=== PATIENT | male | born 1930 | race Caucasian/White ===

== ENCOUNTER 2016-12-27 19:36 | Inpatient (IN) ==
[2016-12-27] MEDS ORDERED: ASPIRIN PO STA (21:12)
[2016-12-27] MEDS ORDERED: MOTRIN PO ONE (21:49)
[2016-12-27 21:55] LABS: INR 1.92
[2016-12-27 21:56] LABS: PTT 51.6 Seconds (22.0-36.0)
[2016-12-27 22:02] LABS: ALBUMIN 3.5 g/dL (3.5-5.0); CALCIUM 8.8 mg/dL (8.8-10.2); MAGNESIUM 2.1 mg/dL (1.5-2.7); POTASSIUM 4.6 mmol/L (3.5-5.1); TOTAL BILIRUBIN 0.5 mg/dL (0.20-1.00); TOTAL PROTEIN 5.8 g/dL (6.3-8.3)
[2016-12-27] MEDS ORDERED: DECADRON IV ONE (22:08)
[2016-12-27] MEDS ORDERED: DUONEB (A & A) INH ONE (22:08)
[2016-12-27 22:09] LABS: BASO% 0.4 % (0.0-0.8); EOS# 0.03 X1000 (0.0-0.7); HEMATOCRIT 26.1 % (42.0-52.0); HEMOGLOBIN 8.3 g/dL (14.0-18.0); IMM GRAN% 0.1 % (0.0-0.5); LYMPH# 147.89 X1000 (1.2-3.4); LYMPH% 96.8 % (20.5-51.1); MANUAL DIFF NEEDED? YES; MCH 35.3 PG (27-31); MCHC 31.8 g/dL (33-37); MCV 111.1 FL (81-99); MONO# 2.87 X1000 (0.11-0.59); MONO% 1.9 % (1.7-9.3); MPV 12.7 FL (7.4-10.4); NEUT% 0.8 % (42.2-75.2); PLT 98 X1000 (130-400); RBC 2.35 XMIL (4.7-6.1)
[2016-12-27] MEDS ORDERED: ROCEPHIN 1 GM/NS 1 GM/50 ML IVPB IV ONE (22:10)
[2016-12-27] MEDS ORDERED: VANCOMYCIN 1 GM/NS 1 GM/250 ML IVPB IV ONE (22:11)
--- NOTE | 2016-12-27 22:12 | PROVIDER DOCUMENTATION ---
HPI-General Adult - General Chief Complaint: Shortness of Breath Stated Complaint: cough,fever,ca Time Seen by Provider: 12/27/16 21:21 Source: patient, family Allergies/Adverse Reactions: Patient Allergies Allergy/AdvReac Type Severity Reaction Status Date / Time No Known Allergies Allergy Verified 12/27/16 20:26 Home Medications: Home Medication List Medication Instructions Recorded Confirmed Last Taken Type Diltiazem HCl [Cardizem Cd] 360 mg PO DAILY 12/27/16 12/27/16 12/27/16 07:00 History Finasteride 5 mg PO DAILY 12/27/16 12/27/16 12/27/16 07:00 History Folic Acid 1 mg PO DAILY 12/27/16 12/27/16 12/27/16 07:00 History Furosemide [Lasix] 20 mg PO DAILY 12/27/16 12/27/16 12/27/16 07:00 History Hydrocodone Bit/Acetaminophen 1 each PO Q6-8H PRN PRN 12/27/16 12/27/16 14:00 History [Hydrocodon-Acetaminophen 5-325] Ibrutinib [Imbruvica] 280 mg PO DAILY 12/27/16 12/27/16 12/27/16 07:00 History Lisinopril [Zestril] 10 mg PO DAILY 12/27/16 12/27/16 12/27/16 07:00 History Methotrexate 10 mg PO DIRECTED 12/27/16 12/27/16 12/25/16 07:00 History Tamsulosin HCl 0.4 mg PO DAILY 12/27/16 12/27/16 12/27/16 07:00 History Venlafaxine HCl [Venlafaxine HCl 75 mg PO DAILY 12/27/16 12/27/16 12/27/16 07: 00 History ER] Warfarin Sodium 7.5 mg PO QHS 12/27/16 12/27/16 12/26/16 19:00 History - History of Present Illness -Gen Adult Nature of Presenting Problems: Pt is 86 y/o M c chief complaint of SOB that is worsening over the past week. Pt is under tx for Leukemia by Dr. Trujillo (Heme/Onc). He is currently undergoing chemotherapy. He was seen in Dr. Trujillo's office yesterday by his ADDRESS CHANGE CLERK for a routine check-up and stated that he had a cough. She started him on Levaquin. Today, he has been extremely SOB and febrile c tmax 101F. He is accompanied by his daughter who is a nurse. On arrival, pt has a low grade fever and is tachycardic and SOB. Review of Systems - Adult - REVIEW OF SYSTEMS - ADULT Constitutional: reports: no symptoms reported. denies: chills, fatique Eyes: reports: no symptoms reported. denies: blurred vision, double vision Ears, Nose, Mouth & Throat: reports: no symptoms reported. denies: ear pain, nose pain Cardiovascular: reports: no symptoms reported. denies: chest pain, orthopnea Respiratory: reports: cough, pleurisy, shortness of breath, wheezing Gastrointestinal: reports: no symptoms reported. denies: abdominal pain, nausea Genitourinary: reports: no symptoms reported. denies: dysuria, hematuria Musculoskeletal: reports: no symptoms reported. denies: bone pain, joint pain, joint swelling Integumentary: reports: no symptoms reported. denies: itching, rash Neurological: reports: no symptoms reported. denies: numbness, paresthesia Psychiatric: reports: no symptoms reported. denies: anxiety, emotional problems Endocrine: reports: no symptoms reported. denies: cold intolerance, heat intolerance Hematologic/Lymphatic: reports: no symptoms reported. denies: blood clots, low blood count Allergic/Immunologic: reports: no symptoms reported. denies: allergic reactions , food allergy All Other Systems: Reviewed and Negative Past History - Adult - PAST MEDICAL HISTORY-ADULT Review of Records: reports: Old Records Reviewed, Nursing Assessment Review, Medications Reviewed, Social history reviewed & non-contributory. Major Childhood Illnesses: reports: denies history Cardiovascular: reports: A-Fib, HTN Respiratory: reports: denies history Gastrointestinal: reports: denies history Obstetrical/Gynecological: reports: denies history Genitourinary: reports: denies history Musculoskeletal: reports: denies history Neurological: reports: denies history Endocrine/Immune: reports: Leukemia Other Conditions: reports: denies history - IMMUNIZATION STATUS Childhood Immunizations: See Nurse Assessment Flu Vaccine: See Nurse Assessment - FAMILY HISTORY Family History: reviewed, not pertinent - SOCIAL HISTORY Smoking: denies Substance Use: none/never Alcohol Use Frequency: never Living Situation: family Physical Exam-General - PHYSICAL EXAM-ADULT Initial Vital Signs Reviewed: Yes - CONSTITUTIONAL General Appearance: alert, mild distress, lethargic - EYES Eyes: PERRL/EOMI, pink conjunctivae - HEAD, EARS, NOSE, MOUTH & THROAT HENMT: normocephalic/atraumatic, moist mucous membranes, normal ENT inspection - NECK Neck: normal inspection - RESPIRATORY Respiratory: rhonchi, wheezing - CARDIOVASCULAR Cardiovascular: normal peripheral pulses, regular rate, rhythm - GASTROINTESTINAL (ABDOMEN) Abdominal Exam: normal bowel sounds, non tender, soft - LYMPHATIC Lymphatic: no adenopathy - MUSCULOSKELETAL Back Exam: normal inspection, no CVA tenderness, no vertebral tenderness Extremity: normal range of motion, non-tender, normal inspection - SKIN Integumentary: normal color, normal turgor, warm/dry - NEUROLOGIC Neurologic: grossly normal, no motor/sensory deficits - PSYCHIATRIC Psych/Mental Status: normal mood/affect, normal thought content, normal thought process, oriented x 3 Progress - PLAN OF CARE/RESULTS Progress/Plan/Lab Results: Vital Signs - 8 hr 12/27/16 20:12 Temperature 99.9 F H Pulse Rate 113 H Respiratory Rate 34 H Blood Pressure 154/73 O2 Sat by Pulse Oximetry 94 L Laboratory Results - last 24 hr 12/27/16 12/27/16 12/27/16 19:50 19:50 19:50 PT 21.0 H INR 1.92 PTT (Actin FS) 51.6 H Sodium 137 Potassium 4.6 Chloride 98 Carbon Dioxide 24 L Anion Gap 15 BUN 28 H Creatinine 1.2 Estimated GFR/1.73 m2 57 BUN/Creatinine Ratio 23 Glucose 109 H Calculated Osmolality 280 Calcium 8.8 Magnesium 2.1 Total Bilirubin 0.50 AST 17 ALT 12 Alkaline Phosphatase 77 Creatine Kinase 123 Troponin T < 0.010 Total Protein 5.8 L Albumin 3.5 Globulin 2.3 Albumin/Globulin Ratio 1.5 Plasma Lactate 12/27/16 21:22 PT INR PTT (Actin FS) Sodium Potassium Chloride Carbon Dioxide Anion Gap BUN Creatinine Estimated GFR/1.73 m2 BUN/Creatinine Ratio Glucose Calculated Osmolality Calcium Magnesium Total Bilirubin AST ALT Alkaline Phosphatase Creatine Kinase Troponin T Total Protein Albumin Globulin Albumin/Globulin Ratio Plasma Lactate 0.8 Orders Category Date Time Status Cardiac Monitoring DIRECTED Care 12/27/16 21:12 Active Oxygen Therapy- ED Nursing DIRECTED Care 12/27/16 21:12 Active Saline Loc NOW Care 12/27/16 21:12 Active CHEST-PORTABLE [RAD] Stat Exams 12/27/16 21:12 Taken CBC WITH ELECTRONIC DIFF [HEME] Stat Lab 12/27/16 19:50 Results CK PROFILE [SP CHEM] Stat Lab 12/27/16 19:50 Completed COMPREHENSIVE METABOLIC PANEL [CHEM] Stat Lab 12/27/16 19:50 Completed D-DIMER [CHEM] Stat Lab 12/27/16 19:50 Received INFLUENZA SCREEN A/B Stat Lab 12/27/16 21:40 Received LACTATE, PLASMA [CHEM] Stat Lab 12/27/16 21:22 Completed MAGNESIUM [CHEM] Stat Lab 12/27/16 19:50 Completed PRO B-NATRIURETIC PEPTIDE Stat Lab 12/27/16 19:50 Received PROTIME WITH INR [COAG] Stat Lab 12/27/16 19:50 Completed PTT [COAG] Stat Lab 12/27/16 19:50 Completed TROPONIN T Stat Lab 12/27/16 19:50 Completed Aspirin Med 12/27/16 21:12 Discontinued 325 mg PO STAT STA Ibuprofen [Motrin] Med 12/27/16 21:49 Discontinued 800 mg PO NOW ONE EKG [EKG] Stat Ther 12/27/16 20:47 Ordered Result Diagrams: 12/27/16 19:50 12/27/16 19:50 - XRAY 1 XRAY Study: Chest Impression: Abnormal (LLL infilatrate) - CONSULTS/PCP/HOSPITALIST Notification #1 *Consult/PCP/Hospitalist*: Dr. Charisse Stephen (call center support representative for Dr. Trujillo) Time Discussed: 22:25 Reason/Comments: recommend admit and will consult #2 Consult: Dr. Mendiola (Hospitalist) Time Discussed: 22:30 Reason/Comments: reviewed Departure - Departure Time of Disposition Decision: 22:24 DIAGNOSIS: Leukemia Qualifiers: Leukemia type: unspecified Leukemia Active/Remission status: relapsed Qualified Code(s): C95.92 - Leukemia, unspecified, in relapse Pneumonia Qualifiers: Pneumonia type: due to unspecified organism Laterality: left Lung location: lower lobe of lung Qualified Code(s): J18.1 - Lobar pneumonia, unspecified organism Disposition: ADMITTED INPATIENT 09 Certified Medical Emergency: Emergent Condition: Stable Attestation - Physician/ HELLEN Attestation Patient care was provided by Advanced Practice Provider:: Yes Advanced Practice Provider:: Gustabo Newton Advanced Practice Provider documentation review:: The Mid-level provider documentation, treatment plan and medical decision making was reviewed by the physician who agrees with all treatment and medical decision making by the MLP.
[2016-12-27 22:13] LABS: LYMPHS 95 % (21-51)
[2016-12-28] MEDS ORDERED: NS 1,000 ML IV ONE (00:06)
[2016-12-28 00:31] LABS: ALLEN TEST YES; BE -0.2 mmoll (-3.0-3.0); BLOOD TYPE ARTERIAL; DRAW SITE R RADIAL; METHB 1.9 % (0.0-1.5); MODALITY VENTIMASK; O2(CT) 10.8 mL/dL (15.0-23.0); PCO2(98.6) 35 mmHg (35-45); PO2(98.6) 84 mmHg (60-100); SAMPLE BLOOD; SAO2 99.7 % (95.0-100.0); pH(98.6) 7.44 (7.35-7.45)
[2016-12-28] MEDS ORDERED: ZOFRAN IV PRN (01:06)
[2016-12-28] MEDS: ZITHROMAX 500 MG/NS 500 MG/250 ML IVPB IV SCH (01:41)
[2016-12-28] MEDS: NS 1,000 ML IV SCH ×3 (01:59→16:49)
--- NOTE | 2016-12-28 04:53 | HISTORY AND PHYSICAL ---
CHIEF COMPLAINT: Shortness of breath, weakness. HISTORY OF PRESENT ILLNESS: An 86-year-old, white male with history of CLL, currently undergoing treatment. I think he has had a conversion in his CLL to an acute leukemoid episode, and he is currently getting treatment for it with Imbruvica. He comes in today with 24 hours of shortness of breath, cough. He just does not feel well. Chest x-ray shows some interstitial infiltrates and he was admitted for treatment. Workup again showed pneumonia, profound leukocytosis of 150,000. Per his daughter, who is a nurse, and he has been over 100, but I think he has had treatment for that. He has had white counts but not this high of a problem and he was admitted for the pneumonia with early sepsis. PAST MEDICAL HISTORY: 1. CLL. 2. He denies COPD but his chest x-rays have been read as pulmonary fibrosis and COPD previously, but he is not a smoker. 3. Hypertension. 4. Paroxysmal atrial fibrillation. 5. Depression. PAST SURGICAL HISTORY: He has had a cholecystectomy. He has had a hemorrhoidectomy. FAMILY HISTORY: Reviewed and noncontributory. SOCIAL HISTORY: No tobacco or ethanol. He is retired. ALLERGIES: No known drug allergies. MEDICATIONS: He currently takes Cardizem CD 360, finasteride 5 daily, folic acid 1 daily, Lasix 20 daily, Bryan p.r.n., Imbruvica 280 daily, Zestril 10 daily, methotrexate 10 daily, Flomax 0.4 daily, Effexor 75 daily, warfarin 7.5 daily. REVIEW OF SYSTEMS: All other systems reviewed and are negative. PHYSICAL EXAMINATION: VITAL SIGNS: Blood pressure 125/57, heart rate 105, respiratory 23, temperature 99.9 degrees, 95% on 2 L. GENERAL: Well-developed male, in no acute distress. HEAD: Normocephalic, atraumatic. EYES: Pupils equal, round, reactive to light. Extraocular movements were intact. EAR/NOSE/THROAT: Had moist mucous membranes. PULMONARY: Bilateral breath sounds. Clear to auscultation. GI: Soft, nontender, nondistended. Bowel sounds are positive. EXTREMITIES: No clubbing or cyanosis. LYMPHATIC: No peripheral edema. NEUROLOGICAL: Nonfocal. LABORATORY DATA: White count 152, hemoglobin 8 and hematocrit 26, platelets 98,000. INR is 1.9. D-dimer up. Creatinine 1.2. BNP 1428. Chest x-ray reported as interstitial infiltrates. PROBLEM LIST: This is an 86-year-old male with chronic lymphocytic leukemia with leukemoid conversion and pneumonia with likely early sepsis. 1. Pneumonia with sepsis. We will continue IV fluids, resuscitation and we will continue other treatments and follow clinically. 2. He has been placed on Rocephin and vancomycin. I am going to add azithromycin and follow closely. 3. Chronic lymphocytic leukemia. He obviously has had progression in his disease. We will continue treatment and follow. 4. Atrial fibrillation appears to be controlled. We will continue medications. Follow his INR on warfarin. 5. Benign prostatic hypertrophy. We will continue to monitor very closely. cc: Israel Mendiola MD
--- NOTE | 2016-12-28 05:51 | EKG Report ---
Test Performed on : 12/27/2016 8:49:54 PM Test Reason : SOB Blood Pressure : / mmHG Vent. Rate : 107 BPM Atrial Rate : 096 BPM P-R Int : 000 ms QRS Dur : 092 ms QT Int : 314 ms P-R-T Axes : 000 -32 074 degrees QTc Int : 419 ms Atrial fibrillation. with rapid ventricular response. Left axis deviation Incomplete right bundle branch block Cannot rule out Anterior infarct , age undetermined Abnormal ECG When compared with ECG of 06-NOV-2007 09:41, Vent. rate has increased BY 41 BPM Non-specific change in ST segment in Anterior leads Nonspecific T wave abnormality now evident in Anterior leads Unconfirmed Result
--- NOTE | 2016-12-28 07:40 | Diag Imaging Result Document ---
PROCEDURE NAME: ANGIOGRAM/PULMONARY ARTERIES - 12/27/2016 CT PULMONARY ANGIOGRAM WITH INTRAVENOUS CONTRAST: 12/27/2016. A CT dose reduction protocol was used. COMPARISON: None. FINDINGS: Axial CT images of the chest were obtained after administering intravenous contrast. Coronal MIP images were generated. There is extensive patient motion artifact. No pulmonary embolism. There is mild bilateral axillary adenopathy. There is also paratracheal adenopathy and superior mediastinal adenopathy, with the largest node at the right tracheoesophageal groove measuring about 2.5 cm maximally. There is cardiomegaly. There are small pleural effusions. There is significant infiltrate in the lingula and left lower lobe, with some patchy infiltrates throughout the right lung as well. There is probably bronchitis. There may also be mild interstitial pulmonary edema. The spleen is enlarged, and there are some gastric collateral suggesting portal hypertension. Further imaging recommended here. No acute bony lesions. IMPRESSION: 1. No definite pulmonary embolism. 2. Cardiomegaly. Pleural effusions. Possible pulmonary edema. 3. Bronchitis and infiltrates suggesting bronchopneumonia. 4. Mild adenopathy. 5. Abnormal liver and spleen. Probable portal hypertension. Recommend imaging of the abdomen and pelvis. [facility]
[2016-12-28] MEDS: EFFEXOR XR PO SCH (08:00)
[2016-12-28] MEDS: CARDIZEM CD PO SCH (08:00)
[2016-12-28] MEDS: FOLIC ACID PO SCH (08:00)
[2016-12-28] MEDS: PROSCAR PO SCH (08:00)
--- NOTE | 2016-12-28 08:42 | Diag Imaging Result Document ---
PROCEDURE NAME: CHEST-PORTABLE - 12/27/2016 SINGLE FRONTAL RADIOGRAPH OF THE CHEST: COMPARISON: 10/17/2016. FINDINGS: There is ill-defined infiltrate involving the lingula and, perhaps, the right middle lobe as well. There is stable mild scarring in the right middle lung zone. There is stable cardiomegaly. Central vasculature appears somewhat prominent suggesting pulmonary venous congestion. IMPRESSION: 1. Ill-defined lingular consolidation and possible mild right middle lobe consolidation. 2. Stable cardiomegaly. 3. Suggestion of at least mild pulmonary venous congestion.
[2016-12-28] MEDS: XOPENEX NEB INH SCH ×4 (09:42→19:35)
--- NOTE | 2016-12-28 09:42 | PROGRESS NOTE ---
DATE: 12/28/2016 HISTORY: This is an 86-year-old male with history of CLL, currently undergoing treatment. He first had CLL about 11 years ago. Received, I think, 11 infusions and felt like he had it whooped and then recently it has come back. He is followed by Dr. Trujillo. He had had a conversion of his CLL to an acute leukemoid episode. Currently getting treatment with Imbruvica. He came in this morning with shortness of breath and cough. Did not feel well. Chest x-ray showed some interstitial infiltrates. He was admitted for treatment. Workup showed pneumonia, profound leukocytosis 150,000 per daughter, who is a nurse. It has been over 100,000. I think he has had treatment for that. White count has not been this high of a problem. PAST MEDICAL HISTORY: 1. CLL, recent leukemoid episode on Imbruvica. 2. Denies COPD. Chest x-ray has some pulmonary fibrosis and some mild COPD previously, not a smoker. 3. Hypertension. 4. Paroxysmal atrial fibrillation. 5. Depression. PAST SURGICAL HISTORY: He has had a cholecystectomy. He has had a hemorrhoidectomy. SUBJECTIVE: This morning, he says he feels a little better. Feels like he is going to have a little better day. I did review that he had a pulmonary angiogram done yesterday. No definite pulmonary embolism. Cardiomegaly pleural, effusions. Possible pulmonary edema, bronchitis and infiltrates suggesting bronchopneumonia. Mild adenopathy. Abnormal liver and spleen. Probable portal hypertension. Recommended imaging of the abdomen and pelvis. OBJECTIVE: Vital Signs: This morning, temp 97.5 degrees, pulse 80, respirations 20, blood pressure 160/90. Pupils: Equal and round. Lungs: Clear in all lung velázquez. Decreased breath sounds both bases. Cardiovascular: Regular rate without murmur or S3. Abdomen: Soft. Skin: Warm and dry. : His urine output 800 mL. ASSESSMENT AND PLAN: 1. Pneumonia with sepsis. Continue IV fluids. Continue present antibiotics. On Rocephin and vancomycin. Did add azithromycin for atypical. 2. Chronic lymphocytic leukemia. Obviously has had progression in his disease and will continued treatment. 3. Atrial fibrillation. Appears to be rate controlled. He is on Coumadin. Follow his INR. 4. Benign prostatic hypertrophy. Aware. Looking at his INR, pro time, it was perfect at 21. 5. Review of his orders. On vancomycin 1 g, receiving 1 g loading dose and then dose per Pharmacy. Ceftriaxone 1 g IV q.24 hours. He is getting methotrexate 40 mg p.o. this was q.7 days. Folic acid 1 mg daily, Proscar 5 mg a day, Cardizem CD 360 mg p.o. He is on Effexor 75 mg a day. Coumadin 7.5 mg at bedtime. He is on azithromycin. cc: Phil Randhawa MD
[2016-12-28] MEDS ORDERED: SYMBICORT 80/4.5 MICROGM INHALER INH SCH (09:45)
[2016-12-28] MEDS: SYMBICORT 80/4.5 MICROGM INHALER INH SCH ×2 (11:20→19:35)
[2016-12-28] MEDS: PATIENT'S OWN MED PO SCH (18:53)
[2016-12-28] MEDS: NORCO-5 PO PRN (20:37)
[2016-12-28] MEDS: ROCEPHIN 1 GM/NS 1 GM/50 ML IVPB IV SCH ×2 (20:37→22:18)
[2016-12-28] MEDS ORDERED: COUMADIN PO SCH (21:00)
[2016-12-29] MEDS: ZITHROMAX 500 MG/NS 500 MG/250 ML IVPB IV SCH ×2 (00:19→23:31)
[2016-12-29] MEDS: XOPENEX NEB INH SCH ×6 (01:29→18:57)
[2016-12-29 05:50] LABS: HEMATOCRIT 27.1 % (42.0-52.0); HEMOGLOBIN 7.6 g/dL (14.0-18.0); MCH 33.9 PG (27-31); MPV 12.4 FL (7.4-10.4); PLT 96 X1000 (130-400); RBC 2.24 XMIL (4.7-6.1)
[2016-12-29 05:55] LABS: INR 2.13; PROTIME 23.5 Seconds (9.2-11.7)
[2016-12-29 06:08] LABS: LYMPHS 72 % (21-51); MONO 4 % (1-9)
[2016-12-29 06:09] LABS: AGAP 11; BUN 26 mg/dL (8-22); CALCIUM 8.8 mg/dL (8.8-10.2); CHLORIDE 106 mmol/L (98-107); COSMO 286; POTASSIUM 5.3 mmol/L (3.5-5.1); SODIUM 140 mmol/L (136-145); TCO2 23 mmol/L (25-35)
[2016-12-29] MEDS: NS 1,000 ML IV SCH ×3 (06:38→22:12)
[2016-12-29] MEDS: PROSCAR PO SCH (08:00)
[2016-12-29] MEDS: FOLIC ACID PO SCH (08:00)
[2016-12-29] MEDS: EFFEXOR XR PO SCH (08:00)
[2016-12-29] MEDS: SENOKOT PO SCH (08:01)
[2016-12-29] MEDS: CARDIZEM CD PO SCH (08:01)
[2016-12-29] MEDS: PATIENT'S OWN MED PO SCH (08:02)
[2016-12-29] MEDS ORDERED: COUMADIN PO SCH (09:15)
[2016-12-29] MEDS: SYMBICORT 80/4.5 MICROGM INHALER INH SCH ×2 (09:26→18:56)
--- NOTE | 2016-12-29 11:01 | PROGRESS NOTE ---
DATE: 12/29/2016 SUBJECTIVE: Mr. Hunter had a pretty good night. He still has some wheezing. He is still getting some hot flashes, sweats and coughing spells, more prominent at nighttime and the evening. He remains afebrile. OBJECTIVE: Temperature is 97.7, pulse 76, respirations 19, blood pressure 114/53. CVP less than 6 cm. Lungs are clear in all lung velázquez. Cardiovascular: Regular rate and rhythm without murmur or S3. Urine output 1800 mL. DIAGNOSTIC DATA: Labs from this morning show white count 140,670, hematocrit 27 with an MCV of 121, platelet count 96,000, neutrophils 96% on the differential. Sodium is 140, potassium 5.3, chloride 106, bicarb 23, BUN is 26, creatinine 1.1, blood sugar was 109 and 136. ProBNP is 1428. Troponin less than 0.01. ASSESSMENT AND PLAN: 1. Pneumonia with sepsis. Much better on Rocephin and vancomycin. Azithromycin was added for atypical. Cultures nasopharyngeal swab influenza was negative for A and B. Blood cultures preliminary from 12/28/2016 no growth thus far. Sputum culture with 4+ white blood cells, 1+ gram-negative rods, 2+ gram-positive cocci. 2. 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 3. Atrial fibrillation. Rate is controlled. Comfortable. 4. Benign prostatic hypertrophy. Aware. 5. Review of his orders, I do not see any changes at this point. To review, again he is on azithromycin 500 mg daily, Coumadin 7.5 mg nightly at bedtime, Effexor ER 75 mg a day, sennosides 2 daily, ceftriaxone 1 g q.24 hours, methotrexate 40 mg p.o. weekly. Fluids are going at 125 mL normal saline every hour. Proscar 5 mg a day, Cardizem CD 360 mg daily, budesonide 2 puffs b.i.d. Still has a little bit of wheezing. Review of his coagulation, ProTime is 23. We may go down on his Warfarin to 6 mg nightly at bedtime or even 5 for now while he is on the antibiotics and watch his ProTime. cc: Phil Randhawa MD
--- NOTE | 2016-12-29 11:25 | Diag Imaging Result Document ---
PROCEDURE NAME: CHEST-2 VIEWS - 12/29/2016 CHEST X-RAY, TWO VIEWS: COMPARISON: 12/27/2016. FINDINGS: There is advanced COPD. There is a worsening, small left pleural effusion; otherwise, stable bibasilar infiltrates, left greater than right. Heart size remains borderline enlarged. Diffuse pulmonary vascular congestion is slightly improved from prior. IMPRESSION: Mixed changes from prior.
[2016-12-29] MEDS: NORCO-5 PO PRN (20:21)
[2016-12-29] MEDS: ROCEPHIN 1 GM/NS 1 GM/50 ML IVPB IV SCH (20:21)
[2016-12-30] MEDS: XOPENEX NEB INH SCH ×5 (00:05→23:16)
[2016-12-30 06:05] LABS: INR 2.71; PROTIME 30.3 Seconds (9.2-11.7)
[2016-12-30] MEDS: NS 1,000 ML IV SCH ×2 (06:13→23:35)
[2016-12-30 06:31] LABS: AGAP 10; BUN 23 mg/dL (8-22); CALCIUM 8.6 mg/dL (8.8-10.2); CHLORIDE 107 mmol/L (98-107); COSMO 283; MAGNESIUM 2.2 mg/dL (1.5-2.7); POTASSIUM 4.2 mmol/L (3.5-5.1); SODIUM 140 mmol/L (136-145); TCO2 23 mmol/L (25-35)
[2016-12-30] MEDS ORDERED: LASIX IV ONE (07:30)
[2016-12-30] MEDS ORDERED: SOLU-MEDROL IV ONE (07:31)
--- NOTE | 2016-12-30 07:53 | PROGRESS NOTE ---
DATE: 12/30/2016 SUBJECTIVE: Mr. Hunter had a pretty good night. States breathing is about the same. Still coughing quite a bit. PHYSICAL EXAMINATION: Vital Signs: Temperature of 97.6 degrees, pulse 81, respirations 18, blood pressure 128/71. HEENT: Pupils are equal and round. CVP less than 6 cm. Lungs: Clear in all lung velázquez. Cardiovascular Examination: Regular rhythm and rate without murmur or S3. Is and Os: Urine output 1000 mL. LAB: Pending this morning for CBC but sodium 140, potassium 4.2, chloride 107, BUN 23, creatinine 1. Chest x-ray done yesterday, mixed changes, advanced COPD. There is worsening small left pleural effusion. Otherwise stable bibasilar infiltrates, left greater than right. Heart size remains borderline large. Diffuse pulmonary vascular congestion, slight improvement. ASSESSMENT AND PLAN: 1. Chronic lymphocytic leukemia with leukemoid reaction. Lymphocyte count above 150,000. Continue Rocephin, vancomycin, and azithromycin. Clinically about the same. Still coughing, still degree of wheezing. 2. Chronic lymphocytic leukemia. Experiencing hot flashes and sweats at night. 3. Atrial fibrillation, rate controlled. 4. Benign prostatic hypertrophy. Aware. 5. Note, following his PT, which was 30, I have cut down his Coumadin. We will see how that does. May need to reduce it some more. I will cut it down at 2.5 at bedtime for now. cc: Phil Randhawa MD
[2016-12-30 07:58] LABS: BASO% 0.3 % (0.0-0.8); EOS# 0.01 X1000 (0.0-0.7); HEMATOCRIT 26.4 % (42.0-52.0); HEMOGLOBIN 8.1 g/dL (14.0-18.0); IMM GRAN# 0.09 X1000 (0.0-0.04); IMM GRAN% 0.1 % (0.0-0.5); LYMPH# 141.25 X1000 (1.2-3.4); LYMPH% 95.8 % (20.5-51.1); MANUAL DIFF NEEDED? NO; MCH 34.3 PG (27-31); MCHC 30.7 g/dL (33-37); MCV 111.9 FL (81-99); MONO# 2.54 X1000 (0.11-0.59); MONO% 1.7 % (1.7-9.3); MPV 11.8 FL (7.4-10.4); NEUT% 2.1 % (42.2-75.2); PLT 103 X1000 (130-400); RBC 2.36 XMIL (4.7-6.1)
[2016-12-30] MEDS: PROSCAR PO SCH (08:06)
[2016-12-30] MEDS: TESSALON PO PRN ×2 (08:06→18:13)
[2016-12-30] MEDS: SENOKOT PO SCH (08:06)
[2016-12-30] MEDS: CARDIZEM CD PO SCH (08:07)
[2016-12-30] MEDS: EFFEXOR XR PO SCH (08:07)
[2016-12-30] MEDS: FOLIC ACID PO SCH (08:07)
[2016-12-30] MEDS: NORCO-5 PO PRN (08:26)
[2016-12-30] MEDS: SYMBICORT 80/4.5 MICROGM INHALER INH SCH ×2 (09:41→19:10)
[2016-12-30] MEDS ORDERED: COUMADIN PO SCH ×2 (18:00→21:00)
[2016-12-30] MEDS: SOLU-MEDROL IV SCH ×2 (18:00→23:34)
[2016-12-30] MEDS: MORPHINE IV PRN (18:07)
[2016-12-30 18:35] LABS: URINE MICRO REVIEW NEEDED? NO; URINE SOURCE VOIDED
[2016-12-30 18:41] LABS: BILIRUBIN URINE NEGATIVE (NEGATIVE); BLOOD URINE TRACE (NEGATIVE); COLOR YELLOW; GLUCOSE URINE NEGATIVE (NEGATIVE); LEUKOCYTES URINE NEGATIVE (NEGATIVE); NITRITE URINE NEGATIVE (NEGATIVE); PROTEIN URINE TRACE mg/dL (NEGATIVE); TURBIDITY URINE CLEAR (CLEAR); UROBILINOGEN URINE NORMAL (NORMAL)
[2016-12-30 18:43] LABS: UR EPITHELIAL CELLS <10 /HPF (<10); URINE BACTERIA NEGATIVE /HPF; URINE RBC <10 /HPF (<10); URINE WBC <10 /HPF (<10)
[2016-12-30] MEDS: FLOMAX PO SCH (20:19)
[2016-12-30] MEDS: ROCEPHIN 1 GM/NS 1 GM/50 ML IVPB IV SCH (20:19)
[2016-12-30] MEDS: ZITHROMAX 500 MG/NS 500 MG/250 ML IVPB IV SCH (23:34)
[2016-12-31] MEDS: XOPENEX NEB INH SCH ×6 (03:04→21:56)
[2016-12-31] MEDS: SOLU-MEDROL IV SCH ×4 (05:39→23:32)
[2016-12-31] MEDS: NS 1,000 ML IV SCH ×3 (05:59→23:32)
[2016-12-31 06:28] LABS: INR 3.59; PROTIME 40.9 Seconds (9.2-11.7)
[2016-12-31 06:39] LABS: BASO% 0.4 % (0.0-0.8); HEMATOCRIT 31.3 % (42.0-52.0); IMM GRAN# 0.21 X1000 (0.0-0.04); IMM GRAN% 0.1 % (0.0-0.5); LYMPH# 186.55 X1000 (1.2-3.4); LYMPH% 95.6 % (20.5-51.1); MANUAL DIFF NEEDED? YES; MCHC 28.8 g/dL (33-37); MCV 114.7 FL (81-99); MONO# 4.33 X1000 (0.11-0.59); MONO% 2.2 % (1.7-9.3); MPV 11.6 FL (7.4-10.4); NEUT% 1.7 % (42.2-75.2); PLT 133 X1000 (130-400); RBC 2.73 XMIL (4.7-6.1)
[2016-12-31 07:07] LABS: HYPOCHROM 1+; MONO 1 % (1-9)
[2016-12-31 07:09] LABS: LYMPHS 89 % (21-51)
[2016-12-31] MEDS ORDERED: LASIX IV ONE (08:05)
--- NOTE | 2016-12-31 08:44 | PROGRESS NOTE ---
DATE: 12/31/2016 SUBJECTIVE: Mr. Hunter had a little better night. He still has a pretty good amount of wheezing and a little bit of trouble voiding. His urine output with over 3 L so he was able to make good urine output. OBJECTIVE: Vital signs: Temp 97.1 degrees, pulse 96, respirations 15, blood pressure 154/87. HEENT: Pupils are equal and round. Lungs: End-expiratory wheezing and slightly prolonged expiratory phase. Abdomen: Soft. Skin: Warm and dry. LAB: White count has actually gone up to 195,000, hematocrit 31, platelet count 133,000. Chemistry: Sodium 140, potassium 4.2, chloride 107, BUN 23, creatinine 1.02. Chest x-ray from the 8th, mixed changes. He has advanced COPD, worsening small left pleural effusion. Otherwise stable bibasilar infiltrates, left greater than right. I am going to check another chest x-ray today. ASSESSMENT AND PLAN: 1. Chronic lymphocytic leukemia with a high lymphocyte count and actually climbing up. This may be secondary to the steroid. Lymphocyte count is going upwards. I will reduce the steroids. Followed by Dr. Trujillo. Suspect this maybe 1 of the reasons for the infiltrates in the lungs. 2. Atrial fibrillation. Rate controlled. 3. Benign prostatic hypertrophy. I am diuresing him. I have turned the fluids down. He does have underlying COPD. 4. On Coumadin. Watching protime. I have reduced his Coumadin level given he is on antibiotic. Protime was 40.9 right now. We will hold the Coumadin. cc: Phil Randhawa MD
[2016-12-31] MEDS: EFFEXOR XR PO SCH (08:52)
[2016-12-31] MEDS: FOLIC ACID PO SCH (08:52)
[2016-12-31] MEDS: FLOMAX PO SCH (08:52)
[2016-12-31] MEDS: PROSCAR PO SCH (08:52)
[2016-12-31] MEDS: SENOKOT PO SCH (08:52)
[2016-12-31] MEDS: CARDIZEM CD PO SCH (09:46)
--- NOTE | 2016-12-31 10:57 | Diag Imaging Result Document ---
PROCEDURE NAME: CHEST-2 VIEWS - 12/31/2016 CHEST, 2 VIEWS: FINDINGS: There is some blunting of the left costophrenic angle which may be slightly improved since 12/29/2016. There is fluid in the major fissure on the left. There is increased interstitial markings in both lungs which are similar in appearance to the previous study. IMPRESSION: Pleural effusion and possible pulmonary edema superimposed on pre-existing fibrosis. This has not changed appreciably with the possible exception of slight increase in the amount of pleural fluid since 12/29/2016.
[2016-12-31] MEDS: SYMBICORT 80/4.5 MICROGM INHALER INH SCH ×2 (11:51→19:24)
[2016-12-31] MEDS: NORCO-5 PO PRN (15:56)
[2016-12-31] MEDS: ROCEPHIN 1 GM/NS 1 GM/50 ML IVPB IV SCH (20:41)
[2016-12-31] MEDS: ZITHROMAX 500 MG/NS 500 MG/250 ML IVPB IV SCH (23:32)
[2016-12-31] MEDS: MORPHINE IV PRN (23:40)
[2017-01-01] MEDS: XOPENEX NEB INH SCH ×5 (02:53→19:07)
[2017-01-01] MEDS: SOLU-MEDROL IV SCH ×4 (05:56→23:09)
[2017-01-01 06:13] LABS: INR 4.71; PROTIME 54.6 Seconds (9.2-11.7)
[2017-01-01] MEDS: CARDIZEM CD PO SCH (08:27)
[2017-01-01] MEDS: FOLIC ACID PO SCH (08:27)
[2017-01-01] MEDS: FLOMAX PO SCH (08:27)
[2017-01-01] MEDS: PROSCAR PO SCH (08:28)
[2017-01-01] MEDS: EFFEXOR XR PO SCH (08:29)
[2017-01-01] MEDS: NS 1,000 ML IV SCH (08:46)
[2017-01-01] MEDS ORDERED: METHOTREXATE PO SCH ×2 (09:00)
[2017-01-01] MEDS: SENOKOT PO SCH (09:01)
[2017-01-01] MEDS: PATIENT'S OWN MED PO SCH (09:01)
[2017-01-01] MEDS: SYMBICORT 80/4.5 MICROGM INHALER INH SCH ×2 (09:48→19:07)
--- NOTE | 2017-01-01 10:02 | PROGRESS NOTE ---
DATE: 01/01/2017 SUBJECTIVE: Mr. Hunter had a better night. He is breathing a little more comfortable. He is voiding okay. PHYSICAL EXAMINATION: Vital Signs: Temperature 97.5 degrees, pulse 87, respirations 17, blood pressure 150/72. HEENT: Pupils were equal and round. CVP less than 6 cm. Lungs: Clear in all lung velázquez. Cardiovascular Examination: Regular rhythm and rate without murmur or S3. Is and Os: Urine output was a little over 2 L. LAB: From yesterday reviewed. We will check some more in the morning. Electrolytes were pretty stable from yesterday as well. We did a chest x-ray yesterday, pleural effusions, possible pulmonary edema superimposed on preexisting fibrosis with underlying COPD has not changed appreciably. Possibly exception of slight increase in the amount of pleural fluid since 12/29/2016. ASSESSMENT: 1. Chronic lymphocytic leukemia with high lymphocyte count. Recheck it again in the morning. Begin some physical therapy, try and get him up out of bed. 2. Possible pneumonia. Continue to treat with present antibiotics. 3. Atrial fibrillation. Rate controlled. 4. Benign prostatic hypertrophy. He is able to void. I did add Flomax to his regimen. 5. He is on Coumadin. Watching his prothrombin times. Today, prothrombin time was 54. Note, I had stopped his Coumadin yesterday so we will hold the Coumadin for a couple of days and readjust his dose. 6. We will begin physical therapy. He is on azithromycin. He is on ceftriaxone. cc: Phil Randhawa MD
[2017-01-01] MEDS: LASIX IV SCH ×2 (11:47→20:23)
[2017-01-01] MEDS ORDERED: VITAMIN K 10 MG in NS 50 ML IV ONE (17:30)
[2017-01-01] MEDS: ROCEPHIN 1 GM/NS 1 GM/50 ML IVPB IV SCH (20:23)
[2017-01-01] MEDS: ZITHROMAX 500 MG/NS 500 MG/250 ML IVPB IV SCH (23:09)
[2017-01-02] MEDS: XOPENEX NEB INH SCH ×6 (02:56→22:34)
[2017-01-02] MEDS: NS 1,000 ML IV SCH ×2 (04:51→17:20)
[2017-01-02] MEDS: LASIX IV SCH ×3 (04:51→21:29)
[2017-01-02 05:17] LABS: BASO% 0.6 % (0.0-0.8); HEMATOCRIT 33.3 % (42.0-52.0); HEMOGLOBIN 9.8 g/dL (14.0-18.0); IMM GRAN# 0.37 X1000 (0.0-0.04); IMM GRAN% 0.2 % (0.0-0.5); LYMPH# 219.64 X1000 (1.2-3.4); LYMPH% 94.6 % (20.5-51.1); MANUAL DIFF NEEDED? YES; MCH 32.8 PG (27-31); MCHC 29.4 g/dL (33-37); MCV 111.4 FL (81-99); MONO# 5.76 X1000 (0.11-0.59); MONO% 2.5 % (1.7-9.3); MPV 10.8 FL (7.4-10.4); NEUT% 2.1 % (42.2-75.2); PLT 142 X1000 (130-400); RBC 2.99 XMIL (4.7-6.1)
[2017-01-02 05:24] LABS: INR 1.42; PROTIME 15.2 Seconds (9.2-11.7)
[2017-01-02 05:30] LABS: AGAP 14; BUN 32 mg/dL (8-22); CALCIUM 8.4 mg/dL (8.8-10.2); CHLORIDE 105 mmol/L (98-107); COSMO 290; POTASSIUM 4.6 mmol/L (3.5-5.1); SODIUM 141 mmol/L (136-145); TCO2 22 mmol/L (25-35)
[2017-01-02] MEDS: SOLU-MEDROL IV SCH ×3 (06:00→17:19)
[2017-01-02 06:55] LABS: LYMPHS 90 % (21-51); MONO 2 % (1-9)
--- NOTE | 2017-01-02 07:55 | PROGRESS NOTE ---
DATE: 01/02/2017 SUBJECTIVE: Mr. Hunter did not sleep much last night. Still has still frequent urination. His breathing is better. Feels a little stronger. He remains afebrile. PHYSICAL EXAMINATION: Vital Signs: Temperature 96.6 degrees, pulse 116, respirations 25, blood pressure 145/81. HEENT: Pupils are equal and round. CVP less than 6 cm. Lungs: Clear in all lung velázquez anterior and posterior. Cardiovascular Examination: Regular rhythm and rate without murmur or S3. Is and Os: Urine output is well over 3 L. LABORATORY DATA: Today's lab, white count has gone up to 232,000, hematocrit is 33, platelet count 24,000. Chemistry: Sodium 141, potassium 4.6, chloride 105, bicarb 22, BUN 32, creatinine 1. ASSESSMENT AND PLAN: 1. Chronic lymphocytic leukemia. Leukocyte count is going up. Clinically, he appears to be doing better as far as breathing. 2. Treating him for pneumonia. He appears to be breathing better. 3. Pleural effusions, pulmonary venous hypertension. This seems to be responding to diuresis. 4. Atrial fibrillation, rate controlled. 5. Benign prostatic hypertrophy, having frequent voiding. He is on Flomax and he is on Proscar. I will ask Dr. Connor Gracia if he has any suggestions. I suspect this is related to the large prostate and overwhelming bladder with the Lasix. Hopefully, getting him up and walking him around is going to help. 6. Review of his orders. I think we will continue the azithromycin. He is on Cardizem CD 360 mg a day, folic acid 1 mg a day, Lasix which he is getting 40 mg intravenous every 12 hours, methotrexate which he gets once a week, his methylprednisone is down to 20 mg intravenous every 6. I will cut that down to 20 mg intravenous every 12. He is on ceftriaxone 1 g every 24 hours. He is on Senokot 2 a day. He takes his Effexor ER 75 mg a day. cc: Phil Randhawa MD
[2017-01-02] MEDS: EFFEXOR XR PO SCH (08:48)
[2017-01-02] MEDS: CARDIZEM CD PO SCH (08:48)
[2017-01-02] MEDS: SENOKOT PO SCH (08:48)
[2017-01-02] MEDS: FLOMAX PO SCH ×2 (08:49→21:29)
[2017-01-02] MEDS: PROSCAR PO SCH (08:49)
[2017-01-02] MEDS: FOLIC ACID PO SCH (08:49)
--- NOTE | 2017-01-02 08:50 | Diag Imaging Result Document ---
PROCEDURE NAME: CHEST-2 VIEWS - 01/02/2017 AP AND LATERAL CHEST, THREE VIEWS: COMPARISON: 12/31/2016. FINDINGS: There is a moderate sized left effusion and a small right pleural effusion. These are slightly larger than on the prior exam. There are infiltrates in the lower left lung with atelectasis. The heart is mildly prominent. The upper lungs remain clear. IMPRESSION: Overall worsening compared to the prior exam.
--- NOTE | 2017-01-02 09:02 | CONSULTATION ---
DATE OF CONSULTATION: 12/31/2016 ADMITTING PHYSICIAN: Dr. Mendiola. REQUESTING PHYSICIAN: Dr. Mendiola. We appreciate this consult. CHIEF COMPLAINT: Profound weakness. HISTORY OF PRESENT ILLNESS: Mr. Hunter is an 86-year-old male with a history of CLL, currently undergoing chemotherapy. The patient does have a history of COPD, hypertension, paroxysmal atrial fibrillation, and depression as well. The patient has had a recent conversion from CLL to acute leukemoid episode and is currently undergoing treatment with Imbruvica. He presented to [facility] secondary to shortness of breath and cough. Chest x-ray revealed interstitial infiltrates and the patient was admitted for treatment. Workup revealed pneumonia with profound leukocytosis and a white blood cell count of 150,000. The patient does have a recent history of leukocytosis with white blood cell count greater than 100,000. PAST MEDICAL HISTORY: 1. CLL status post Ibrutinib cycle 1, day 1 on December 26, 2016. 2. COPD. 3. Pulmonary fibrosis. 4. Hypertension. 5. Paroxysmal atrial fibrillation. 6. Depression. PAST SURGICAL HISTORY: 1. Cholecystectomy. 2. Hemorrhoidectomy. FAMILY HISTORY: Negative for any hematologic or oncologic problems. SOCIAL HISTORY: The patient does not use tobacco, alcohol, or illicit drugs. MEDICATIONS ON ADMISSION: 1. Cardizem CD. 2. Finasteride. 3. Folic acid. 4. Lasix. 5. Kopperl. 6. Imbruvica. 7. Zestril. 8. Methotrexate. 9. Flomax. 10. Effexor. 11. Warfarin. ALLERGIES: The patient has no known drug allergies. REVIEW OF SYSTEMS: A 14 point review of systems was obtained and is negative except for as mentioned in HPI. PHYSICAL EXAMINATION: General: Mr. Hunter is an 86-year-old male lying supine in bed, in no immediate distress. Vital Signs: Temperature 97.5 degrees, blood pressure 160/90, heart rate 81, respirations 22, O2 saturation is 100% on Venturi mask. HEENT: Normocephalic, atraumatic. Mucous membranes are pink and somewhat dry. Sclerae is anicteric. Extraocular movements intact. Neck: Supple. Lungs: Clear to auscultation bilaterally. Chest expansion is equal bilaterally. CV: S1, S2 is heard without murmur, rub, or gallop. Abdomen: Soft, nondistended, nontender. Bowel sounds positive in all quadrants. No rebound or guarding noted. Extremities: Without clubbing, cyanosis, or edema. Dermatologic: No rashes, bruises, or lesions. Neurologic: The patient is awake, alert, and oriented x3. He has no focal deficits at this time. LABORATORY DATA: Hemoglobin 8.3, hematocrit 26.1, white blood cell count 152.73, platelets 98,000, ANC 1.30, absolute lymphocyte count 147.89, lymphocytes 95. INR 1.92. Sodium 137, potassium 4.6, chloride 98, CO2 is 24, BUN 28, creatinine 1.2, glucose 109. ProBNP is 1,428. Blood cultures are currently pending. Influenza A and B are both negative. IMAGING STUDIES: Pulmonary arteriogram is negative for pulmonary embolism. It does reveal bronchogenic pneumonia as well as mild adenopathy and probable portal hypertension, as well as cardiomegaly with probable pleural effusion. ASSESSMENT AND PLAN: 1. Chronic lymphocytic leukemia with recent progression. The patient recently began Ibrutinib. He is status post cycle 1, day 1 on December 26, 2016. We will hold chemotherapy during his acute illness. 2. Atrial fibrillation on Coumadin with an INR of 1.92. 3. Rheumatoid arthritis. On methotrexate and prednisone. Well controlled. 4. Thrombocytopenia secondary to #1 with a platelet count of 98,000. 5. Iron-deficiency anemia. Hemoglobin today is 8.3. We will continue to monitor CBC and iron saturation and transfuse if hemoglobin goes below 8.0. 6. Pneumonia with sepsis. Currently on Rocephin, vancomycin, and azithromycin. 7. We will follow along and make further recommendations pending outcomes. The above reflects the history, exam, assessment, and plan of Dr. Trujillo. Dictated by PARVIN Padron for Ji Trujillo MD cc: PARVIN Padron MD
[2017-01-02] MEDS: SYMBICORT 80/4.5 MICROGM INHALER INH SCH ×2 (09:23→19:03)
[2017-01-02] MEDS: PATIENT'S OWN MED PO SCH (09:58)
[2017-01-02 11:10] LABS: URINE CULTURE NEEDED? NO; URINE MICRO REVIEW NEEDED? NO; URINE SOURCE CATH
[2017-01-02 11:13] LABS: BILIRUBIN URINE NEGATIVE (NEGATIVE); BLOOD URINE SMALL (NEGATIVE); COLOR STRAW; GLUCOSE URINE NEGATIVE (NEGATIVE); LEUKOCYTES URINE NEGATIVE (NEGATIVE); NITRITE URINE NEGATIVE (NEGATIVE); PROTEIN URINE NEGATIVE (NEGATIVE); SP GRAVITY URINE 1.007; TURBIDITY URINE CLEAR (CLEAR); UROBILINOGEN URINE NORMAL (NORMAL)
[2017-01-02 11:14] LABS: UR EPITHELIAL CELLS <10 /HPF (<10); URINE BACTERIA NEGATIVE /HPF; URINE RBC <10 /HPF (<10); URINE WBC <10 /HPF (<10)
--- NOTE | 2017-01-02 11:31 | CONSULTATION ---
DATE OF CONSULTATION: 01/02/2017 ATTENDING/REFERRING PHYSICIAN: Phil Randhawa MD HISTORY OF PRESENT ILLNESS: This 86-year-old male is followed in the [facility]rology Clinic for a history of elevated PSA. Over 10 years ago, it was 8.9. Prostate ultrasound and biopsies were benign. He was started on Proscar, and his PSA had dropped. He was last seen in the Urology Clinic in July 2016. His PSA was 0.83. He is on Proscar 5 mg a day and Flomax 0.4 mg a day. He was admitted with pneumonia and progression of chronic lymphocytic leukemia. He was also noted to have pulmonary fibrosis and pulmonary effusions. He is currently being diuresed. He states that for the last several days he has been voiding all the time. He states just a small amount comes out at a time. He states this has not been occurring before he came to the hospital. He states normally as long as he takes his medication, he has no problems voiding. He has had no hematuria. PAST MEDICAL HISTORY: COPD, pulmonary fibrosis, hypertension, paroxysmal atrial fibrillation, depression, history of elevated PSA. CURRENT MEDICATIONS: Documented on the chart and include Flomax and Proscar. PAST SURGICAL HISTORY: T and A as a child, cholecystectomy, hemorrhoidectomy, teeth extraction. SOCIAL HISTORY: No tobacco or alcohol use. REVIEW OF SYSTEMS: No known drug allergies. He states that he is breathing easier. He denies any bowel problems. PHYSICAL EXAMINATION: General: A thin normally developed age-apparent white male, oriented in all ways and cooperative. HEENT: Normal for age. Lungs: Clear anteriorly. Cardiovascular: Regular rate and rhythm. Abdomen: Very protuberant, soft, nontender. No hepatosplenomegaly or masses. However, there does seem to be a bulge in the suprapubic area consistent with urinary retention. Genitourinary: Both testes down. Scrotal exam is normal. Foreskin retracts. No inguinal hernias. Rectal: Normal sphincter tone. Prostate about 40 grams, smooth and symmetric. Extremities: No clubbing, cyanosis, or edema. Neurologic: No focal deficits. LABORATORY EVALUATION: He has a white count of 232,000, hemoglobin 9.8, hematocrit 33.3, platelets are 142,000. Serum electrolytes are normal. BUN 32, creatinine 1. IMPRESSION: 1. Enlarged prostate with obstructive voiding, usually controlled with medication, but being diuresed, this has overwhelmed his bladder. 2.Probable urinary retention. 3. Multiple medical problems, as noted in the History of Present Illness. RECOMMENDATIONS: Recommend to increase Flomax to 0.4 mg b.i.d. Postvoid scan; if greater than 150, place a Valenzuela catheter. If postvoid is less than 150, it would be his choice to have a catheter placed for a few days to allow him to rest. Thank you for this consultation. cc: Landon Gracia MD [facility]
[2017-01-02] MEDS: TYLENOL PO PRN (14:12)
--- NOTE | 2017-01-02 19:14 | CONSULTATION ---
DATE OF CONSULTATION: 12/28/2016 CONCLUSION: The patient has an acute flare up of his chronic lymphocytic leukemia. He has bilateral pulmonary infiltrates that certainly could be due to the leukemia. Also pneumonia is a possibility and then finally it could be that the infiltrates are combination of both. I discussed with Dr. Trujillo and we think it would be reasonable to check the patient's immunoglobulin levels, which can be low with chronic lymphocytic leukemia. RECOMMENDATIONS: While the patient is in the hospital I think it would be reasonable to continue Rocephin and azithromycin. I have changed azithromycin to be given p.o. rather than IV. When the patient goes home if he still continues to look good then I think he could possibly be sent home on an oral antibiotic such as Ceftin, which has coverage of organisms somewhat similar to Rocephin and PO azithromycin. I have also ordered the urinary antigens for pneumococcus and Legionella. DISCUSSION: This patient was admitted to the hospital. He had severe dyspnea and fever approximately a week ago. He has gotten much better. His chest x-ray now shows bilateral infiltrates. His white count is still very high at 232,280, hemoglobin is 9.8, and platelet count is 142,000. Creatinine is 1.0. The GFR is greater than 60. Urinalysis shows no white cells or bacteria. Swab for influenza was negative. Clostridium difficile antigen and toxin in stool were negative. Sputum grew a normal vanessa. Blood cultures are sterile. Patient overall feels very good. One problem he had was that he could not pass his urine and a Valenzuela catheter was inserted. PAST MEDICAL HISTORY/REVIEW OF SYSTEMS: Eyes and ears: He has decreased hearing but his vision is good. Neck: No stiffness. Respiratory: He has not been coughing but he has been somewhat dyspneic. Cardiac: No chest pain or palpitations. Genitourinary : See above for obstruction to urinary output which necessitated placement of a Valenzuela catheter. GI: No nausea, vomiting, or diarrhea. Bones, joints, muscles: No joint pain or myalgias. Endocrine: Patient does not have diabetes or thyroid problems. Neurologic: No seizures or motor or sensory loss. The remainder of the patient's review of systems was completed and was negative. PREVIOUS HOSPITALIZATIONS AND OPERATIONS: The patient years ago had an admission to the hospital somewhat similar to the 1 now. He had chronic lymphocytic leukemia and possible pneumonia. MEDICAL DISEASES: Positive for CLL, hypertension, and benign prostatic hypertrophy. INFECTIOUS DISEASE HISTORY: Positive for pneumonia. Negative for UTI. FAMILY HISTORY: Positive for hypertension, pneumonia, and leukemia. SOCIAL HISTORY: The patient is . He has dogs for pets. He has no known drug allergies. HOME MEDICATIONS: Include the following. Tums, Tylenol PM, Coumadin, venlafaxine, lisinopril, Imbruvica, hydrocodone, Lasix, folic acid, finasteride, diltiazem, tamsulosin, and methotrexate. PHYSICAL EXAMINATION: Vital Signs: Temperature is 98 degrees, pulse 92, respirations 21, blood pressure 121/93. Patient is 6 feet tall, weighs 211 pounds. Generally: This is an obese, somewhat-ill appearing, elderly male. He is in no acute distress at this time. Head, eyes, ears, nose, and throat: He can hear my spoken words and see near objects. The patient has decreased hearing. No drainage is noted from the nose or ears. Neck: No meningismus. Thorax: No increased AP diameter of the chest. Lungs: Clear to auscultation. Cardiovascular: Heart rate was regular. Abdomen: Soft and not tender. Extremities: There was no leg edema. Neurologic: Patient is alert. He can move his extremities. There is no tremor. Thank you for the consult. cc: Chance Leong MD MTDD
[2017-01-02] MEDS: ROCEPHIN 1 GM/NS 1 GM/50 ML IVPB IV SCH (21:29)
[2017-01-03] MEDS: SOLU-MEDROL IV SCH ×5 (00:44→23:56)
[2017-01-03] MEDS: XOPENEX NEB INH SCH ×4 (03:04→22:18)
[2017-01-03 05:29] LABS: BASO% 0.3 % (0.0-0.8); HEMATOCRIT 28.5 % (42.0-52.0); IMM GRAN# 0.22 X1000 (0.0-0.04); IMM GRAN% 0.1 % (0.0-0.5); INR 1.2; LYMPH# 150.01 X1000 (1.2-3.4); MANUAL DIFF NEEDED? YES; MCH 33.6 PG (27-31); MCHC 31.6 g/dL (33-37); MCV 106.3 FL (81-99); MONO# 3.16 X1000 (0.11-0.59); MPV 11.6 FL (7.4-10.4); NEUT% 2.6 % (42.2-75.2); PLT 110 X1000 (130-400); PROTIME 12.8 Seconds (9.2-11.7); RBC 2.68 XMIL (4.7-6.1)
[2017-01-03 05:36] LABS: BASO 2 % (0-1); LYMPHS 88 % (21-51); MONO 2 % (1-9)
[2017-01-03] MEDS: NS 1,000 ML IV SCH ×4 (06:09→23:00)
--- NOTE | 2017-01-03 07:00 | PROGRESS NOTE ---
DATE: 01/03/2017 PRESENT ILLNESS: The patient has pulmonary infiltrates. I think it may be a combination of leukemic infiltrates and pneumonia. MEDICATIONS: The patient currently is receiving Rocephin IV and azithromycin, which I changed from IV to p.o. PHYSICAL EXAMINATION: Vital Signs: Temperature is 97.4 degrees, pulse 80, respirations 19, blood pressure 127/48. Generally: This is a somewhat ill-appearing, elderly male. He is in no acute distress. Cardiovascular: Heart rate is regular. Lungs: Clear to auscultation. Abdomen: Soft without masses or tenderness. Ears, Nose, and Throat: No drainage noticed in the mouth. The patient has decreased hearing. LAB AND X-RAY: There is no new x-ray today. The patient's CBC shows a white count of 15,940, hemoglobin 9 and a platelet count of 110,000. The patient does not have a creatinine for today. There also is no new chest x-ray for today. The patient's immunoglobulin levels are pending. ASSESSMENT AND PLAN: The patient has chronic lymphocytic leukemia. He has a chest x-ray with bilateral infiltrates. I think it is a combination of pneumonia and leukemic infiltrates. My plan is to send the patient home on Ceftin 500 mg p.o. every 12 hours and azithromycin 500 mg daily for 2 weeks, at which time I will see the patient in my office; that is 2 weeks from now, and examine him and repeat the chest x-ray. The patient's antibiotics have been electronically prescribed to his pharmacy. COMORBIDITIES: Include the following: He has CLL and is undergoing chemotherapy for that. cc: Chance Leong MD MTDD
[2017-01-03] MEDS: PROSCAR PO SCH (08:10)
[2017-01-03] MEDS: SENOKOT PO SCH (08:10)
[2017-01-03] MEDS: FLOMAX PO SCH ×3 (08:10→20:45)
[2017-01-03] MEDS: CARDIZEM CD PO SCH (08:10)
[2017-01-03] MEDS: EFFEXOR XR PO SCH (08:10)
[2017-01-03] MEDS: ZITHROMAX PO SCH (08:10)
[2017-01-03] MEDS: FOLIC ACID PO SCH (08:10)
[2017-01-03] MEDS: LASIX IV SCH ×3 (08:13→20:45)
--- NOTE | 2017-01-03 08:37 | DISCHARGE SUMMARY ---
ADMISSION DATE: 12/28/2016 DISCHARGE DATE: 01/03/2017 HISTORY OF PRESENT ILLNESS: An 86-year-old with a history of CLL who presented with shortness of breath and weakness. He is currently undergoing treatment under Dr. Trujillo's direction, his conversion of CLL to an acute leucovorin episode with a white count above 150,000. He is currently getting treatment with Imbruvica. He presented with shortness of breath and cough. Chest x-ray showed some interstitial infiltrates and admitted, felt possibly an atypical pneumonia. He had profound leukocytosis and as I stated, his white count was well over 150,000 lymphocytes. PAST MEDICAL HISTORY: 1. CLL. 2. Denies COPD. A chest x-ray is read as some underlying pulmonary fibrosis and COPD. He is not a smoker. 3. Hypertension. 4. Paroxysmal atrial fibrillation. 5. Depression. PAST SURGICAL HISTORY: Had a cholecystectomy and had a hemorrhoidectomy in the past. HOSPITAL COURSE: The patient showed a slow improvement with his breathing. Tried to diurese a little bit because there was some evidence of pulmonary venous hypertension and pleural effusion. Continued his antibiotics of azithromycin and had him on ceftriaxone 1 g q.24 hours. He had trouble with frequent urination and bladder distention. I tried to avoid putting a Valenzuela catheter in him. Eventually, we needed to. He had over 1000 mL in his bladder retention. He started feeling stronger, was able to ambulate. Remained afebrile. Followup chest x-rays showed really little change, if not worsening left effusion, small right pleural effusion, infiltrates in the lower left lung with atelectasis but clinically he felt better. Dr. Leong felt he had bilateral pulmonary infiltrates. It could be due to his chronic lymphocytic leukemia and leukemoid reaction, the pneumonia. Continue to treat with some antibiotics but felt he could go home. We are going to check patient's immunoglobulin levels and those are pending at this time so we are going to continue Rocephin and azithromycin, change azithromycin to p.o. Gave him oral Ceftin to have similar coverage. These were called to the pharmacy. Patient already has O2 at home. He can use this p.r.n. Keep the Valenzuela catheter in. He will follow up with Dr. Connor Gracia in a week and then follow up with Dr. Trujillo as well. DISCHARGE MEDICATIONS: Continue his Imbruvica 280 mg p.o. daily. He has [place] 5 q.6-8 hours p.r.n. pain. He will get the Zithromax 500 mg p.o. daily, which I think he will take for another 7 days. Ceftin which I think is going to be 500 mg twice a day and to take for another 7 days. Cardizem CD 360 mg daily, Proscar 5 mg a day, folic acid 1 mg daily. We will stop his Lasix. Methotrexate 10 mg p.o. q.7 days he takes for the rheumatoid arthritis. We will stop his Solu- Medrol. Flomax 0.4 mg p.o. daily and I think that was increased to b.i.d. and his Effexor 75 mg a day. He also takes Senokot 2 daily as needed. cc: Phil Randhawa MD
[2017-01-03] MEDS: PATIENT'S OWN MED PO SCH (09:02)
[2017-01-03] MEDS: NS NEB INH SCH ×2 (09:52→15:02)
[2017-01-03] MEDS: SYMBICORT 80/4.5 MICROGM INHALER INH SCH ×2 (09:52→22:18)
[2017-01-03] MEDS ORDERED: FLEBOGAMMA DIF 5% IV ONE (15:00)
[2017-01-03] MEDS: ROCEPHIN 1 GM/NS 1 GM/50 ML IVPB IV SCH (20:45)
[2017-01-04] MEDS: XOPENEX NEB INH SCH ×4 (04:31→22:46)
[2017-01-04] MEDS: SOLU-MEDROL IV SCH ×3 (05:00→17:00)
[2017-01-04 05:37] LABS: INR 1.2; PROTIME 12.8 Seconds (9.2-11.7)
[2017-01-04 05:45] LABS: BASO% 0.3 % (0.0-0.8); HEMATOCRIT 31.8 % (42.0-52.0); HEMOGLOBIN 9.5 g/dL (14.0-18.0); IMM GRAN# 0.14 X1000 (0.0-0.04); IMM GRAN% 0.1 % (0.0-0.5); LYMPH# 135.31 X1000 (1.2-3.4); LYMPH% 94.9 % (20.5-51.1); MANUAL DIFF NEEDED? YES; MCH 33.3 PG (27-31); MCHC 29.9 g/dL (33-37); MCV 111.6 FL (81-99); MONO# 3.33 X1000 (0.11-0.59); MONO% 2.3 % (1.7-9.3); NEUT% 2.4 % (42.2-75.2); PLT 85 X1000 (130-400); RBC 2.85 XMIL (4.7-6.1)
[2017-01-04 07:15] LABS: LYMPHS 96 % (21-51); MONO 2 % (1-9)
--- NOTE | 2017-01-04 08:42 | PROGRESS NOTE ---
DATE: 01/04/2017 SUBJECTIVE: Mr. Hunter is feeling better. He still has a little bit of cough. He is feeling a little stronger. Breathing is comfortable. Temp 98 degrees, pulse 78, respirations 20, blood pressure 147/70.HEENT: Pupils are equal and round. CVP less than 6 cm. Lungs: Clear in all lung velázquez. Cardiovascular: Regular rhythm and rate without murmur or S3. Abdomen: Soft. Skin is warm and dry. LAB: Urine output over 7 L. White count has come down, 142,630. Hematocrit is 31, platelet count is 85,000. Predominant lymphocytes. Electrolytes from yesterday looked good. Renal function looked good. Creatinine 1.0. ASSESSMENT AND PLAN: 1. Chronic lymphocytic leukemia. Leukemoid reaction with a white count. The lymphocyte count seems to be coming down. 2. Pneumonia. Continue present antibiotics. Seems to be clinically improving. 3. Pleural effusions. This seemed to be improving clinically as well. 4. Atrial fibrillation rate controlled. 5. Benign prostatic hypertrophy with bladder retention. Valenzuela catheter in place. is following. He will keep the Valenzuela catheter in for probably another week. 6. Getting ready go home. Continue his physical therapy. Review of his orders-I do not see any change at this point. IV fluids going at 65 mL of normal saline daily. Still getting Lasix 40 mg IV q.12 h. I am going to check another chest x-ray today. cc: Phil Randhawa MD
[2017-01-04] MEDS: LASIX IV SCH ×2 (08:55→20:53)
[2017-01-04] MEDS: EFFEXOR XR PO SCH (08:56)
[2017-01-04] MEDS: PATIENT'S OWN MED PO SCH (08:57)
[2017-01-04] MEDS: CARDIZEM CD PO SCH (08:57)
[2017-01-04] MEDS: ZITHROMAX PO SCH (08:57)
[2017-01-04] MEDS: FOLIC ACID PO SCH (08:57)
[2017-01-04] MEDS: FLOMAX PO SCH ×2 (08:57→20:53)
[2017-01-04] MEDS: SENOKOT PO SCH (08:57)
[2017-01-04] MEDS: PROSCAR PO SCH (08:57)
--- NOTE | 2017-01-04 09:04 | PROGRESS NOTE ---
DATE: 12/28/2016 PRESENT ILLNESS: The patient has bilateral pulmonary infiltrates which I think are a combination of leukemic infiltrates and pneumonia. MEDICATIONS: The patient is receiving IV Rocephin and p.o. azithromycin. PHYSICAL EXAMINATION: Vital Signs: Temperature is 98 degrees, pulse 78, respirations 20, blood pressure 147/70. Generally: This is a somewhat of an ill-appearing, elderly male. He coughed continuously during the time I was in his room he was unable to bring up any sputum. Lungs: Clear to auscultation. Cardiovascular: Regular heart rate. Abdomen: Soft and nontender. Neurologic: Patient is alert. He can move his extremities. LAB AND X-RAY: The patient's IgG level was 231 and the IgA level was 10. Patient's CBC showed a white count of 14,2630, hemoglobin 9.5, and platelet count 850,000. There is no new chest x-ray on the patient yet. He just was just taken down to get his x-ray. ASSESSMENT AND PLAN: My plan is to continue the patient on azithromycin and when he goes home, he will be switched from Rocephin to Ceftin. Both the azithromycin and Ceftin will be continued 2 more weeks, at which time I will see the patient in my office and examine him and repeat the patient's chest x-ray. The patient's antibiotics have already been electronically prescribed to the patient's pharmacy. COMORBIDITY: Includes CLL and now he is undergoing chemotherapy for CLL. cc: Chance Leong MD
--- NOTE | 2017-01-04 10:16 | Diag Imaging Result Document ---
PROCEDURE NAME: CHEST-2 VIEWS - 01/04/2017 TWO VIEWS OF THE CHEST: FINDINGS: There are loculated pleural fluid collections bilaterally. There appears to be some increase in pleural fluid on the right however; otherwise, there has been no significant change since 01/02/2017. IMPRESSION: Increased right pleural fluid.
[2017-01-04] MEDS: SYMBICORT 80/4.5 MICROGM INHALER INH SCH ×2 (10:44→22:46)
[2017-01-04] MEDS: NS 1,000 ML IV SCH ×2 (11:01→13:08)
[2017-01-04] MEDS: ROCEPHIN 1 GM/NS 1 GM/50 ML IVPB IV SCH (20:53)
[2017-01-05] MEDS: SOLU-MEDROL IV SCH ×5 (00:15→23:23)
[2017-01-05] MEDS: NS 1,000 ML IV SCH ×3 (00:15→20:55)
[2017-01-05 05:29] LABS: BASO% 0.3 % (0.0-0.8); HEMOGLOBIN 9.3 g/dL (14.0-18.0); MANUAL DIFF NEEDED? YES; MCH 33.6 PG (27-31); MCV 108.3 FL (81-99); MPV 11.3 FL (7.4-10.4); PLT 66 X1000 (130-400); RBC 2.77 XMIL (4.7-6.1)
[2017-01-05 05:30] LABS: INR 1.25; PROTIME 13.3 Seconds (9.2-11.7)
[2017-01-05] MEDS: XOPENEX NEB INH SCH ×4 (05:38→22:29)
[2017-01-05 05:47] LABS: LYMPHS 80 % (21-51)
[2017-01-05] MEDS: ZITHROMAX PO SCH (08:41)
[2017-01-05] MEDS: EFFEXOR XR PO SCH (08:41)
[2017-01-05] MEDS: CARDIZEM CD PO SCH (08:41)
[2017-01-05] MEDS: PROSCAR PO SCH (08:41)
[2017-01-05] MEDS: FLOMAX PO SCH ×2 (08:41→20:45)
[2017-01-05] MEDS: PATIENT'S OWN MED PO SCH (08:42)
[2017-01-05] MEDS: FOLIC ACID PO SCH (08:46)
[2017-01-05] MEDS: LASIX IV SCH ×2 (08:46→20:45)
[2017-01-05] MEDS: SENOKOT PO SCH (08:46)
[2017-01-05] MEDS: SYMBICORT 80/4.5 MICROGM INHALER INH SCH ×2 (09:05→22:29)
--- NOTE | 2017-01-05 11:31 | PROGRESS NOTE ---
DATE: 01/05/2017 He feels good. He feels better every day. Note the white count has come down. Lymphocyte count is down to 128,000 which is encouraging. Hematocrit stable at 30. Pro time was 13. PHYSICAL EXAM: Awake, alert, pleasant, comfortable. Breathing comfortably.Vital Signs: Temp 97.8 degrees, pulse 88, respirations 16, blood pressure 147/67. HEENT: The pupils are equal, round, react to light and accommodation. Oral and nasal mucosa unremarkable. Conjunctivae pink. Sclerae clear. Tympanic membranes intact. Lungs: Clear in all lung velázquez. Cardiovascular: Regular rhythm and rate without murmur or S3. Abdomen: Soft. Valenzuela catheter in place. No pedal edema. Urine output is over 2500 mL. LAB: Pro time was 13. ASSESSMENT AND PLAN: 1. Chronic lymphocytic leukemia. Leukemoid reaction. White count seems to be coming down which is encouraging. I suspect some pneumonia so I have been treating him with antibiotic and that is improved clinically as well. 2. Bladder retention over 1000 mL. Valenzuela catheter back in. Dr. Connor Gracia is following. He will leave the Valenzuela catheter. 3. Cardiac status looks good. Atrial fib. His rate is controlled. He is on Cardizem CD 360 mg daily. Reviewed all those orders and medications. I do not see any changes. We will continue to check his pro time tomorrow and Saturday. He is back on Coumadin, and I will put him on 5 mg at bedtime. cc: Phil Randhawa MD
[2017-01-05] MEDS: ROCEPHIN 1 GM/NS 1 GM/50 ML IVPB IV SCH (20:45)
[2017-01-05] MEDS: COUMADIN PO SCH (20:45)
[2017-01-06] MEDS: XOPENEX NEB INH SCH ×4 (05:55→22:24)
[2017-01-06] MEDS: SOLU-MEDROL IV SCH ×3 (06:53→17:44)
[2017-01-06] MEDS ORDERED: CHLORASEPTIC SPRAY MT PRN (08:20)
[2017-01-06] MEDS: PROSCAR PO SCH (08:38)
[2017-01-06] MEDS: ZITHROMAX PO SCH (08:38)
[2017-01-06] MEDS: LASIX IV SCH ×3 (08:38→21:23)
[2017-01-06] MEDS: FLOMAX PO SCH ×2 (08:38→21:23)
[2017-01-06] MEDS: FOLIC ACID PO SCH (08:38)
[2017-01-06] MEDS: EFFEXOR XR PO SCH (08:39)
[2017-01-06] MEDS: CARDIZEM CD PO SCH (08:39)
[2017-01-06] MEDS: SENOKOT PO SCH (08:42)
[2017-01-06] MEDS: SYMBICORT 80/4.5 MICROGM INHALER INH SCH ×2 (09:02→22:24)
[2017-01-06] MEDS: NS NEB INH SCH (09:03)
--- NOTE | 2017-01-06 09:09 | PROGRESS NOTE ---
DATE: 01/06/2017 SUBJECTIVE: He had a good night. He still has a little irritation in his throat, so we will try some Chloraseptic. His breathing is comfortable. He is not having the warm and hot flashes, and his bladder is not distended. Feels like his strength is improving. OBJECTIVE: Temperature is 98.7, pulse 83, respirations 22, blood pressure 144/58. Pupils are equal and round. Lungs are clear in all lung velázquez. Cardiovascular: Regular rhythm and rate without murmur or S3. Abdomen: Soft. Skin is warm and dry. Urine output about 3 L. DIAGNOSTIC DATA: White count is down from yesterday and was 128,000, hematocrit 30, platelet count 66,000. Last chemistry was on 01/02/2017 and showed creatinine 1.0. ASSESSMENT AND PLAN: 1. Chronic lymphocytic leukemia, leukemoid reaction. Treating him for pneumonia. Appears to be clinically improving. Dr. Leong is following as is Dr. Trujillo. Suspect a combination of leukemic infiltrates and pneumonia. He is on Rocephin and azithromycin and making clinical improvement. 2. Bladder retention and benign prostatic hypertrophy. Valenzuela catheter in place. 3. History of atrial fibrillation. Rate is controlled. Hemodynamics look good. 4. Still a little bit of sore throat. We will try some Chloraseptic. I reviewed his orders. He was placed on Coumadin 5 mg nightly at bedtime. Still getting fluids normal saline at 65 mL an hour. His ProTime this morning was 13.3. cc: Phil Randhawa MD
[2017-01-06] MEDS: PATIENT'S OWN MED PO SCH (09:35)
[2017-01-06] MEDS: NS 1,000 ML IV SCH (12:42)
[2017-01-06] MEDS ORDERED: DULCOLAX PR ONE (20:11)
[2017-01-06] MEDS: ROCEPHIN 1 GM/NS 1 GM/50 ML IVPB IV SCH (21:23)
[2017-01-06] MEDS: COUMADIN PO SCH (21:23)
[2017-01-07] MEDS: SOLU-MEDROL IV SCH ×3 (00:03→13:38)
[2017-01-07] MEDS: XOPENEX NEB INH SCH ×2 (03:25→09:12)
[2017-01-07] MEDS: TYLENOL PO PRN (05:30)
--- NOTE | 2017-01-07 06:55 | PROGRESS NOTE ---
DATE: 01/07/2017 PRESENT ILLNESS: The patient has bilateral pulmonary infiltrates which I think are a combination of pneumonia and leukemic infiltration. He also has hypogammaglobulinemia. MEDICATIONS: 1. IV Rocephin. The patient has been on Rocephin for 10 days 2. P.O. azithromycin. The patient has been on azithromycin also for 10 days. PHYSICAL EXAMINATION: Vital Signs: Temperature is 97.9 degrees, pulse 75, respirations 16, blood pressure 131/56. Generally: This is a somewhat ill-appearing, elderly male. He coughs infrequently and he does not bring up any sputum when he does cough. Lungs: Clear to auscultation. Cardiovascular: Regular heart rate. Abdomen: Soft without masses or tenderness. Extremities: Patient has a PICC in the right arm. The site is not erythematous or swollen. LAB AND X-RAY: There is no new x-ray. The lab shows that the patient's CBC is 128,530 hemoglobin is 9.3 and platelet count is 66,000. Patient's IgG and IgA are very low. The patient's urinary Legionella antigen and pneumococcal urinary antigen is also negative. ASSESSMENT AND PLAN: The patient has pneumonia and hypogammaglobulinemia. The plan is to treat the patient at home on a combination of Ceftin and azithromycin, both being given for 2 more weeks and both are being given p.o. Dr. Chavez will be managing the patient's low IgG level. PLAN: I will be seeing the patient back in my office in 2 weeks at which time I will examine him and then repeat his x-ray. COMORBIDITIES: Include CLL, chemotherapy for CLL and hypogammaglobulinemia. cc: Chance Leong MD [facility]
[2017-01-07] MEDS: SYMBICORT 80/4.5 MICROGM INHALER INH SCH (09:12)
[2017-01-07] MEDS: CARDIZEM CD PO SCH (09:16)
[2017-01-07] MEDS: LASIX IV SCH (09:16)
[2017-01-07] MEDS: EFFEXOR XR PO SCH (09:16)
[2017-01-07] MEDS: SENOKOT PO SCH (09:20)
[2017-01-07] MEDS: PROSCAR PO SCH (09:20)
[2017-01-07] MEDS: FLOMAX PO SCH (09:21)
[2017-01-07] MEDS: FOLIC ACID PO SCH (09:21)
[2017-01-07] MEDS: PATIENT'S OWN MED PO SCH (09:27)
[2017-01-07] MEDS: ZITHROMAX PO SCH (10:01)
--- NOTE | 2017-01-07 10:02 | DISCHARGE SUMMARY ---
ADMISSION DATE: 12/28/2016 DISCHARGE DATE: 01/07/2017 HISTORY AND HOSPITAL COURSE: This is an 86-year-old with a history of CLL who presented with shortness of breath and weakness. He is currently undergoing treatment under Dr. Trujillo's direction. He had conversion CLL to acute leukemoid reaction with an elevated white count, lymphocyte count above 150,000. Currently was getting treatment with Imbruvica. He presented with shortness of breath and cough. Chest x-ray showed some interstitial infiltrates and was treated with antibiotics and treated empirically. He had bladder distention and had to place a Valenzuela catheter. This is because of benign prostatic hypertrophy and we were diuresing him. He has a history of paroxysmal atrial fibrillation and the rate was controlled. His strength improved. His eating improved. While he was here his had an accident and fell and had injury to her face and was here in the hospital as well. We continued the IV fluids and continued physical therapy and felt he was ready go home on 01/07/2017. Dr. Leong and Dr. Trujillo were following. He has been on Rocephin for 10 days and azithromycin for 10 days. The patient has pneumonia and hypogammaglobulinemia. It was determined to treat the patient with a combination of Ceftin and azithromycin for 2 more weeks and be given that p.o. Dr. Trujillo will manage the patient's low IgG level. He is to see an Dr. Connor Gracia and get his Valenzuela catheter out in about a week and we will set up home health for him. DISCHARGE MEDICATIONS: The patient will continue Imbruvica 280 mg a day, [place] 5 mg q.6-8 hours p.r.n. pain. He will have the Zithromax 500 mg a day and Ceftin 500 mg twice a day and actually I think we are going to do both of those for another 2 weeks. Cardizem CD 360 mg, Proscar 5 mg a day, folic acid 1 mg a day. Methotrexate he takes 10 mg for his rheumatoid arthritis. Flomax 0.4 mg a day and Effexor 75 mg a day. Also takes Senokot twice a day as needed. I think we did set him up to have home O2 if needed. cc: Phil Randhawa MD
[2017-01-07 12:01] VITALS: BP 136/66
[2017-01-07] MEDS: NS 1,000 ML IV SCH (12:12)
== END 2017-01-07 13:55 | disposition home health service (06) ==
LOC: ED 19:36 → 3S 12-28 00:33 → SUATTDRO 12-28 00:33 → 3S 12-28 10:38
PROVIDERS: ATTEND Emergency Medicine